=== PATIENT | female | born 1990 | race American Indian/Alaskan Native ===

== ENCOUNTER 2022-02-03 18:23 | Emergency (ER) | payer MEDICAID ==
[2022-02-03 18:30] VITALS: BP 134/91
[2022-02-03] MEDS ORDERED: dexAMETHasone 20 MG/5 ML VIAL IM ONE (20:38)
[2022-02-03] MEDS ORDERED: AMOXICILLIN/K CLAV 875/125MG TAB PO ONE (20:38)
[2022-02-03] MEDS ORDERED: IBUPROFEN 800 MG TAB PO ONE (20:38)
--- NOTE | 2022-02-03 21:27 | Emergency Department Report ---
ED General Adult HPI - General Chief complaint: Sore Throat Stated complaint: SORETHROAT/PAINFUL Time Seen by Provider: 02/03/22 20:37 Source: patient Mode of arrival: Ambulatory Limitations: No Limitations - History of Present Illness Initial comments: Is a 31-year-old female who presents for sore throat x1 month states pain is 5/10 exacerbated by swallowing described as burning. Patient denies history of asthma or bronchitis. There is no shortness of breath no wheezing or stridor. Symptoms are exacerbated by swallowing. However patient is tolerating p.o. intake. States nocturnal fever no fever noted in triage today. Patient appears nontoxic well-nourished well-hydrated and with no acute distress. Severity scale (0 -10): 8 - Related Data Previous Rx's Medication Instructions Recorded Last Taken Type Amoxicillin/K Clav Tab [Augmentin 1 tab PO BID 7 Days #14 tab 02/03/22 Unknown Rx 875 mg] Ibuprofen [Motrin 800 MG tab] 800 mg PO Q8HR PRN #30 tablet 02/03/22 Unknown Rx dexAMETHasone [Decadron] 4 mg PO BID 3 Days #6 tablet 02/03/22 Unknown Rx Allergies Allergy/AdvReac Type Severity Reaction Status Date / Time No Known Allergies Allergy Verified 02/03/22 18:30 ED Review of Systems ROS: Stated complaint: SORETHROAT/PAINFUL Other details as noted in HPI Constitutional: denies: chills, fever Eyes: denies: eye pain, eye discharge, vision change ENT: throat pain, congestion Respiratory: denies: cough, shortness of breath, wheezing Cardiovascular: denies: chest pain, palpitations Endocrine: no symptoms reported Gastrointestinal: denies: abdominal pain, nausea, vomiting, diarrhea Genitourinary: denies: urgency, dysuria, discharge Musculoskeletal: denies: back pain, joint swelling, arthralgia Skin: denies: rash, lesions Neurological: as per HPI. denies: headache, vertigo Psychiatric: denies: anxiety, depression Hematological/Lymphatic: denies: easy bleeding, easy bruising ED Past Medical Hx - Medications Home Medications: Home Medications Medication Instructions Recorded Confirmed Last Taken Type Amoxicillin/K Clav Tab [Augmentin 1 tab PO BID 7 Days #14 tab 02/03/22 Unknown Rx 875 mg] Ibuprofen [Motrin 800 MG tab] 800 mg PO Q8HR PRN #30 tablet 02/03/22 Unknown Rx dexAMETHasone [Decadron] 4 mg PO BID 3 Days #6 tablet 02/03/22 Unknown Rx ED Physical Exam - General Limitations: No Limitations General appearance: alert, in no apparent distress - Head Head exam: Present: normocephalic, normal inspection - Eye Eye exam: Present: EOMI Pupils: Present: normal accommodation - ENT ENT exam: Present: mucous membranes moist, TM's normal bilaterally, normal external ear exam - Expanded ENT Exam Expanded Throat exam: Positive: tonsillar erythema, tonsillomegaly, tonsillar exudate, other (Uvula midline no lesions airway is patent no stridor no wheezing respirations are even and nonlabored.). Negative: R peritonsillar mass, L peritonsillar mass - Neck Neck exam: Present: normal inspection, tenderness (Right anterior auricle lymph), full ROM, lymphadenopathy - Respiratory Respiratory exam: Present: normal lung sounds bilaterally. Absent: respiratory distress, wheezes, stridor - Cardiovascular Cardiovascular Exam: Present: regular rate, normal rhythm, normal heart sounds. Absent: systolic murmur, diastolic murmur, rubs, gallop - GI/Abdominal GI/Abdominal exam: Present: soft, normal bowel sounds. Absent: distended, tenderness - Extremities Exam Extremities exam: Present: normal inspection, full ROM, normal capillary refill - Back Exam Back exam: Present: normal inspection, full ROM. Absent: CVA tenderness (R), CVA tenderness (L) - Neurological Exam Neurological exam: Present: alert, oriented X3, CN II-XII intact, normal gait - Expanded Neurological Exam Expanded Patient oriented to: Present: person, place, time Speech: Present: fluid speech Cranial nerves: Gag Reflex: Normal, Tongue Deviation: Normal Best Eye Response (Camilo): (4) open spontaneously Best Motor Response (Camilo): (6) obeys commands Best Verbal Response (Deer): (5) oriented Deer Total: 15 - Psychiatric Psychiatric exam: Present: normal affect, normal mood - Skin Skin exam: Present: warm, dry, intact, normal color. Absent: rash ED Course Vital Signs 02/03/22 18:28 Temperature 97.4 F L Pulse Rate 82 Respiratory 16 Rate Blood Pressure 134/91 [Left] O2 Sat by Pulse 96 Oximetry ED Medical Decision Making - Medical Decision Making Rapid strep is pending however symptoms for the past month may necessitate antibiotic therapy. Airway is patent there is no lesions however there is mild exudate noted to bilateral tonsils. No signs of peritonsillar abscess there is no stridor voice is clear non-muffled no fever no chills. Lung sounds are clear throughout. Respirations are even and nonlabored. Patient is tolerating p.o. intake rapid strep pending, plan DC to home with prescriptions. Follow-up with ENT in 2 to 3 days. Return to emergency department should symptoms worsen. Critical care attestation.: If time is entered above; I have spent that time in minutes in the direct care of this critically ill patient, excluding procedure time. ED Disposition Clinical Impression: Pharyngitis Qualifiers: Pharyngitis/tonsillitis etiology: unspecified etiology Qualified Code(s): J02.9 - Acute pharyngitis, unspecified Disposition: [facility] Is pt being admited?: No Does the pt Need Aspirin: No Condition: Stable Instructions: Pharyngitis Additional Instructions: Take medication as prescribed, follow-up with ear nose and throat doctor in 2 to 3 days. Return to the emergency department should symptoms worsen. Prescriptions: Amoxicillin/K Clav Tab [Augmentin 875 mg] 1 tab PO BID 7 Days #14 tab dexAMETHasone [Decadron] 4 mg PO BID 3 Days #6 tablet Ibuprofen [Motrin 800 MG tab] 800 mg PO Q8HR PRN #30 tablet PRN Reason: pain fever Referrals: ONUR JUSTIN MD [Staff Physician] - 3-5 Days Forms: Work/School Release Form(ED) Time of Disposition: 21:29
== END 2022-02-03 22:04 ==
LOC: ED 18:23
DX: J02.9 Acute pharyngitis, unspecified (principal)
CPT/HCPCS: 87116; 87430; 96372; 99283; J1100